=== PATIENT | male | born 1960 | race Caucasian/White ===

== ENCOUNTER 2016-08-23 20:36 | Inpatient (IN) | payer BC ==
[2016-08-23] MEDS ORDERED: IPRATROPIUM/ALBUTEROL (0.5MG/3MG) NEB INH ONE (20:42)
[2016-08-23] MEDS ORDERED: METHYLPREDNISOLONE PF 125MG/VIAL IVP ONE (20:42)
--- NOTE | 2016-08-23 20:48 | Emergency Department Record ---
History of Present Illness - General Stated Complaint: TANYA Time Seen by Provider: 08/23/16 20:42 Source: Patient Mode of Arrival: Ambulatory Limitations: No limitations - History of Present Illness Initial Comments: 55 yo male presents with cough since the weekend with increasing shortness of breath. No fevers. He does smoke. No chest pain. The cough has been non productive to this point in time. No fevers. He had his annual check up last week and felt normal. No history of CAD, COPD or asthma. MD Complaint: Cough, Shortness of breath -: Hour(s) (3) Severity: Moderate Quality: Other Consistency: Constant Improves With: Rest Worsens With: Coughing, Exertion Context: Recent URI Associated Symptoms: Cough Treatments Prior to Arrival: None - Related Data Home Oxygen Therapy: No Home Medications Medication Instructions Recorded Confirmed Last Taken Amlodipine Besylate [Norvasc] 5 mg PO DAILY 08/23/16 08/23/16 Unknown Epinephrine [Epinephrine] 0.3 mg SC ASDIR PRN 08/23/16 08/23/16 Unknown Propranolol HCl [Propranolol HCl 60 mg PO DAILY 08/23/16 08/23/16 Unknown ER] Tamsulosin HCl [Flomax] 0.4 mg PO DAILY 08/23/16 08/23/16 Unknown Allergies Allergy/AdvReac Type Severity Reaction Status Date / Time No Known Drug Allergies Allergy Verified 08/23/16 20:56 Review of Systems Constitutional: Denies: Chills, Fever, Malaise, Night sweats, Weakness Eyes: Denies: Eye discharge ENT: Reports: Congestion. Denies: Dental pain, Epistaxis, Throat pain Respiratory: Reports: Cough, Dyspnea, Wheezes Cardiovascular: Denies: Chest pain, Palpitations, Syncope Endocrine: Denies: Fatigue, Polydipsia, Polyuria Gastrointestinal: Denies: Abdominal pain, Diarrhea, Nausea, Vomiting Genitourinary: Denies: Dysuria, Frequency, Hematuria Musculoskeletal: Denies: Arthralgia, Back pain, Myalgia Skin: Denies: Bruising, Change in color, Rash Neurological: Denies: Headache, Numbness, Vertigo, Weakness Psychiatric: Denies: Anxiety Hematological/Lymphatic: Denies: Anemia, Blood Clots, Easy bleeding, Easy bruising, Swollen glands Physical Exam - General General Appearance: Alert, Oriented x3, Cooperative, No acute distress Limitations: No limitations - Head Head exam: Normal inspection - Eye Eye exam: Normal appearance, PERRL. negative: Conjunctival injection, Periorbital swelling - ENT ENT exam: Normal exam, Mucous membranes moist Ear exam: Normal external inspection Nasal Exam: Normal inspection Mouth exam: Normal external inspection Teeth exam: Normal inspection - Neck Neck exam: Normal inspection, Full ROM. negative: Tenderness - Respiratory Respiratory exam: Decreased breath sounds, Rhonchi, Wheezes. negative: Normal lung sounds bilaterally - Cardiovascular Cardiovascular Exam: Regular rate, Normal rhythm, Normal heart sounds - GI/Abdominal GI/Abdominal exam: Soft. negative: Tenderness - Rectal Rectal exam: Deferred - exam: Deferred - Extremities Extremities exam: Normal inspection, Full ROM, Normal capillary refill. negative: Pedal edema, Tenderness - Back Back exam: Reports: Normal inspection, Full ROM. Denies: Muscle spasm, Rash noted, Tenderness - Neurological Neurological exam: Alert, Normal gait, Oriented X3 - Psychiatric Psychiatric exam: Normal affect, Normal mood. negative: Agitated, Anxious - Skin Skin exam: Dry, Intact, Normal color, Warm Course Vital Signs 08/23/16 20:41 Temperature 98.9 F Pulse Rate [ 90 Pulse Ox Probe] Respiratory 24 Rate Blood Pressure 138/87 [Left Arm] Pulse Ox 95 - Reevaluation(s) Reevaluation #1: The labs were reviewed. No acute changes on the CBC or CMP His Troponin was negative BNP mildly elevated at 444 CXR was reviewed by me. No infiltrate. On recheck he is still wheezing with saturations around 90% I will give antibiotics as well and recommend OBV for treatments, monitoring oxygen levels EKG 2048 NSR, rate 73, intervals normal, axis normal, ST poor R wave, no acute ST changes. 08/23/16 21:51 Medical Decision Making - Lab Data Result diagrams: 08/23/16 20:55 08/23/16 20:55
[2016-08-23 21:01] LABS: BASO % 0.5 % (0-6); EOS % 1.4 % (0-6); GRAN % 76.3 % (47-80); HEMATOCRIT 45.8 % (42.0-52.0); HEMOGLOBIN 15.9 gm/dl (14.0-18.0); LYMPH % 13.8 % (16-45); MEAN CELL VOLUME 90.2 fl (81-97); MEAN CORPUSCULAR HEMOGLOBIN 31.3 pg (27-33); MEAN CORPUSCULAR HGB CONC 34.7 g/dl (32-36); MEAN PLATELET VOLUME 9.2 fl (7.4-10.4); PLATELET COUNT 175 K/uL (130-400); RED BLOOD COUNT 5.08 M/uL (4.40-5.70); RED CELL DISTRIBUTION WIDTH 14.2 % (11.5-14.5); WHITE BLOOD COUNT W/O DIFF 8.4 K/uL (4.2-12.2)
[2016-08-23 21:13] LABS: ALB/GLOB RATIO 1.3 (1.1-1.8); ALBUMIN 4.6 gm/dL (3.5-5.0); ALKALINE PHOSPHATASE 82 U/L (38-126); ALT/SGPT 27 U/L (21-72); ANION GAP 6.4 (7-16); AST/SGOT 29 U/L (17-59); BILIRUBIN,TOTAL 1.04 mg/dL (0.2-1.3); BLOOD UREA NITROGEN 13 mg/dL (9-20); CARBON DIOXIDE 23.6 mmol/L (22-30); CREATININE 0.9 mg/dL (0.66-1.25); EST GLOMERULAR FILTRATION RATE > 60 ml/min; GLUCOSE,RANDOM 98 mg/dL (70-110); TOTAL PROTEIN 8.2 gm/dL (6.3-8.2)
[2016-08-23 21:25] LABS: TROPONIN I < 0.012 ng/mL (0.00-0.034)
[2016-08-23] MEDS ORDERED: CEFTRIAXONE SODIUM 1 GM in 0.9 % SODIUM CHLORIDE 100ML 100 ML IVPB SCH ×2 (22:00→22:15)
[2016-08-23] MEDS ORDERED: AZITHROMYCIN 500 MG TABLET PO ONE (22:03)
[2016-08-24] MEDS ORDERED: IPRATROPIUM/ALBUTEROL (0.5MG/3MG) NEB INH ONE (00:09)
[2016-08-24] MEDS ORDERED: ALBUTEROL SULFATE (0.083%) 2.5 MG/3 ML NEB INH PRN (01:38)
[2016-08-24] MEDS: IPRATROPIUM/ALBUTEROL (0.5MG/3MG) NEB INH SCH ×5 (05:03→21:41)
[2016-08-24 07:13] LABS: TROPONIN I < 0.012 ng/mL (0.00-0.034)
[2016-08-24] MEDS: AZITHROMYCIN 500 MG TABLET PO SCH (09:25)
[2016-08-24] MEDS: TAMSULOSIN HCL 0.4 MG CAP.ER.24H PO SCH (09:25)
[2016-08-24] MEDS: AMLODIPINE BESYLATE 5MG TAB PO SCH (09:25)
[2016-08-24] MEDS ORDERED: AZITHROMYCIN 500 MG TABLET PO SCH (10:00)
[2016-08-24] MEDS ORDERED: PROPRANOLOL HCL 60 MG PO SCH (10:00)
[2016-08-24] MEDS ORDERED: METHYLPREDNISOLONE PF 125MG/VIAL IVP SCH (10:00)
[2016-08-24] MEDS ORDERED: 0.9 % SODIUM CHLORIDE 1000ML 1,000 ML IV ONE (13:00)
[2016-08-24] MEDS: CEFTRIAXONE SODIUM 1 GM in 0.9 % SODIUM CHLORIDE 100ML 100 ML IVPB SCH ×2 (13:28→22:29)
[2016-08-24] MEDS: ENOXAPARIN 40 MG/0.4 ML SYR SQ SCH (13:33)
[2016-08-24] MEDS: METHYLPREDNISOLONE PF 125MG/VIAL IVP SCH (18:02)
[2016-08-24] MEDS ORDERED: PROPRANOLOL 60 MG PO SCH (22:00)
[2016-08-24] MEDS ORDERED: CEFTRIAXONE SODIUM 1 GM in 0.9 % SODIUM CHLORIDE 100ML 100 ML IVPB SCH (23:00)
[2016-08-25] MEDS: METHYLPREDNISOLONE PF 125MG/VIAL IVP SCH ×2 (02:01→09:27)
[2016-08-25] MEDS: IPRATROPIUM/ALBUTEROL (0.5MG/3MG) NEB INH SCH ×3 (06:41→14:18)
[2016-08-25] MEDS: AZITHROMYCIN 500 MG TABLET PO SCH (09:26)
[2016-08-25] MEDS: TAMSULOSIN HCL 0.4 MG CAP.ER.24H PO SCH (09:26)
[2016-08-25] MEDS: ENOXAPARIN 40 MG/0.4 ML SYR SQ SCH (09:26)
[2016-08-25] MEDS: CEFTRIAXONE SODIUM 1 GM in 0.9 % SODIUM CHLORIDE 100ML 100 ML IVPB SCH (09:27)
[2016-08-25] MEDS: AMLODIPINE BESYLATE 5MG TAB PO SCH (09:27)
--- NOTE | 2016-08-25 16:20 | Discharge Note ---
VTE H&P Assessment - Risk for VTE Risk for VTE: Yes Risk Level: Moderate Risk Assessment Date: 08/24/16 Risk Assessment Time: 13:00 VTE Orders Placed or Will Be Placed: Yes Discharge Medications - Discharge Medications Prescriptions: Albuterol Sulfate [Proair Hfa] 1 - 2 puff IH .EVERY 4-6 HOURS PRN #1 inhaler PRN Reason: Difficulty In Breathing Azithromycin [Zithromax] 500 mg PO DAILY #10 tab Prednisone [Prednisone 10Mg] 10 mg PO ASDIR #30 tab Home Medications: Ambulatory Orders Amlodipine Besylate [Norvasc] 5 mg PO DAILY 08/23/16 [Last Taken Unknown] Epinephrine 0.3 mg SC ASDIR PRN 08/23/16 [Last Taken Unknown] Propranolol HCl [Propranolol HCl ER] 240 mg PO DAILY 08/23/16 [Last Taken Unknown] Tamsulosin HCl [Flomax] 0.4 mg PO DAILY 08/23/16 [Last Taken Unknown] Albuterol Sulfate [Proair Hfa] 1 - 2 puff IH .EVERY 4-6 HOURS PRN #1 inhaler 10/04 [Last Taken Unknown] Azithromycin [Zithromax] 500 mg PO DAILY #10 tab 08/25/16 [Last Taken Unknown] Prednisone [Prednisone 10Mg] 10 mg PO ASDIR #30 tab 08/25/16 [Last Taken Unknown ] Discharge Note - Date Date of Discharge Note: 08/25/16 Disposition: Home, Self-Care Condition: (1) Good Additional Instructions: follow up with Dr. Medina in 2 to 5 days return to Ed if worse . take zithromycin 500 mg one a day stop cigs prednisone taper from 40 mg Forms: Patient Portal Access
--- NOTE | 2016-08-27 14:31 | History and Physical Report ---
DATE OF EVALUATION: 08/24/2016 DATE OF ADMISSION: 08/24/2016 CHIEF COMPLAINT: Dyspnea, cough, congestion, which started 24 hours prior to admission. HISTORY OF CHIEF COMPLAINT: Patient was seen in the Emergency Department by Dr. Garcia, admitted to the hospital for bronchitis, COPD exacerbation, and wheezing. Patient is a current everyday smoker, about a pack a day. Patient denies chest pain. His cough is dry, nonproductive. No fevers. No history of CAD, COPD or asthma. PAST MEDICAL HISTORY: Tremor. He uses propranolol. Dosage seems very high, 240 mg daily. At this point, he takes four 60 mg pills. I am going to start with 60 mg daily, then confirm this dosage with them. Benign prostatic hyperplasia and hypertension. 2. Flomax 0.4 mg daily. 3. Norvasc 5 mg daily. 4. Epinephrine subcu for allergic reactions. ALLERGIES: None. FAMILY PSYCHOSOCIAL HISTORY: Smokes cigarettes. No alcohol use. No drug use. Father has dementia. Grandparents had dementia. Aunt has diabetes. Father has heart disease. REVIEW OF SYSTEMS: HEENT: No upper respiratory infection symptoms, cough, cold , or congestion no diffiuclty swallowing and no facial pain. Cardiovascular: No chest pain, palpitations, or arrhythmias. Respiratory: He has a cough, congestion, [id number], and wheezing. Smoking history of 1 pack per day. Gastrointestinal: No nausea, vomiting, diarrhea, black stools, or bloody stools. Genitourinary: No dysuria, hematuria, frequency, or burning on urination. Musculoskeletal: No joint or bony abnormalities. Neurologic: No CVA, paralysis, or paresthesias. Endocrine: No diabetes or thyroid disease. Integument: No rash, ulcers, changes in moles, or yellow skin. PHYSICAL EXAMINATION: VITAL SIGNS: Height 5'7". Weight 208 pounds. Pulse 101. Blood pressure 116/ 68. Respiratory rate 18. Pulse ox 94% on room air. He is wheezing all lung gunn. HEENT: Pupils equal, round, and reactive to light and accommodation. Extraocular muscles intact. Throat is clear. Nose is clear. Tympanic membranes velarde. NECK: Supple. No jugular venous distention. No hepatojugular reflux. No carotid bruits. Thyroid is smooth. CARDIOVASCULAR: Regular rate and rhythm without murmurs, clicks, rubs, or gallops. RESPIRATORY: Wheezing in all lung gunn. ABDOMEN: Soft, nontender, no hepatosplenomegaly. No masses or tenderness. Bowel sounds active. No bruits. EXTREMITIES: No pitting edema. No cyanosis or clubbing. Full range of motion. Peripheral pulses good. BREASTS: Normal male breasts. GENITALIA: Deferred. RECTAL: Deferred. NEUROLOGIC: Cranial nerves II-XII intact. No gross deficits. Sensation normal. Strength normal. Deep tendon reflexes equal bilaterally. Babinski is negative. MENTAL STATUS: Alert and oriented x3. IMPRESSION: 1. Acute bronchitis. 2. COPD. 3. Wheezing. PLAN: IV Rocephin. Oral azithromycin and Solu-Medrol IV. DuoNeb and albuterol treatments. 08/24/2016 @ 1906 ADDENDUM: Admit to Inpatient Care. Based on my medical assessment and consideration of patient risk factors, age, comorbidity, and patient presenting symptoms, I expect this patient will remain in the hospital greater than or equal to 2 midnights, and the services needed warrant inpatient care because of his respiratory status. ESTIMATED LENGTH OF STAY: 3. The patient may reasonably be expected to be discharged or transferred to a hospital within 96 hours after admission to [facility]. I certify that my determination is in accordance with my understanding of Medicare requirements for reasonable and necessary inpatient services. YUMIKO
--- NOTE | 2016-08-30 10:20 | Discharge Summary ---
DATE OF DISCHARGE: 08/27/2016 DISCHARGE DIAGNOSES: 1. Acute bronchitis. 2. Acute exacerbation of COPD. 3. Tobacco use disorder. ATTENDING PHYSICIAN: Mike Fajardo D.O. REASON FOR HOSPITALIZATION: This 55-year-old male was having difficulty breathing, presented to the emergency department, treated by Dr. Garcia. The dyspnea and cough started approximately 3-4 days prior, and his breathing got much worse over the last 24 hours. He was evaluated by Dr. Garcia and admitted to the hospital for acute bronchitis and acute exacerbation of COPD. SIGNIFICANT FINDINGS: Chest x-ray showing no acute infiltrate. EKG showing sinus rhythm. No acute ST/T-wave changes. LABORATORY: WBC 8,400, hemoglobin 15.9. Potassium 4, BUN 12, creatinine 0.9. Cardiac enzymes x3 were negative. Brain natriuretic peptide was in the normal range. THERAPY PROVIDED: ____ in response to therapeutic ____ patient was initially admitted to the hospital, started on Rocephin 1 gram every 12 hours and azithromycin 500 mg daily, also started on Solu-Medrol 125 mg in the emergency department and 60 mg every 8 hours after that. Breathing treatments of DuoNebs every 4 hours and albuterol every 2 hours p.r.n. He was also covered with Lovenox subcu for prevention of DVT. HOSPITAL COURSE: The patient was gradually getting better. He was being switched over to oral meds on 08/25/2016, but he stated he wanted to go home; he did not want to stay any longer in the hospital. He was doing better. At that point, I felt he could go home, but he could have troubles; however, he was very insistent about going home. He was also very upset that he had to wait until 4:00 p.m. to see me. I told him I was going to stress they could evaluate him, and he demanded to go home. At that point, I set up the discharge orders for him: prednisone 40 mg tapering, 3 days on each level, azithromycin 500 mg daily, continue with the albuterol inhaler 1-2 puffs every hours. Follow up with Dr. Cha in 2-5 days. [facility]
--- NOTE | 2016-09-01 08:06 | RADIOLOGY REPORT ---
DATE: 08/23/2016 at 21:11. EXAM: TWO-VIEW, CHEST. HISTORY: Progressive shortness of breath. Crackles at lung bases. COMPARISON: Chest x-ray dated 12/28/2010. TECHNIQUE: Two views of the chest were performed. FINDINGS: Strandy air space disease in the left lower lobe. The right lung is clear. The cardiac silhouette, diaphragm, and osseus structures are unremarkable. IMPRESSION: NEW STRANDY AIR SPACE DISEASE AT THE LEFT LUNG BASE COULD RELATE TO ATELECTASIS OR, LESS LIKELY, PNEUMONITIS. JOB NUMBER: [id number] MTDD
== END 2016-08-25 16:45 | disposition home or self-care (01) | DRG 192 ==
LOC: ER 20:36 → MEDSURG 08-24 00:20 → OBSVTOIN 08-24 00:20
PROVIDERS: ADMIT Emergency Medicine; ATTEND Emergency Medicine
DX: J44.1 Chronic obstructive pulmonary disease with (acute) exacerbation (principal); J20.9 Acute bronchitis, unspecified; J44.0 Chronic obstructive pulmonary disease with (acute) lower respiratory infection; F17.200 Nicotine dependence, unspecified, uncomplicated
CPT/HCPCS: 71020; 80053; 83880; 84484; 85025; 93005; 93010; 93041; 94640; 94760; 96365; 96366; 96375; 99223; 99239; 99285; J1650; J2930